=== PATIENT | female | born 1975 | race Caucasian/White ===

== ENCOUNTER 2017-02-07 09:09 | Emergency (ER) | payer BC ==
[~2017-02-07 09:09] MED LIST: BACTRIM DS TABL1 TA1 PO; DOXYCYCLINE HY100 M3 PO; FLAGYL PO; FLEXERIL PO; KETOPROFEN PO; TYLENOL #3 PO; TYLOX 5-500 CA1 EACH PO; VICODIN 5/500 T1 TAB PO; ZOVIRAX400 MG PO
[2017-02-07] MEDS ORDERED: WELLBUTRIN (09:16)
[2017-02-07] MEDS ORDERED: KLONOPIN (09:17)
[2017-02-07 09:37] LABS: URINE APPEARANCE SL CLOUDY; URINE BILIRUBIN NEG (NEG); URINE BLOOD 3+ (NEG); URINE COLOR YELLOW; URINE GLUCOSE NEG (NORM); URINE KETONE TRACE (NEG); URINE LEUKOCYTE ESTERASE 2+ (NEG); URINE NITRATE POS (NEG); URINE PROTEIN 3+ (NEG); URINE SOURCE CLEAN CATCH; URINE SPECIFIC GRAVITY 1.025 (1.003-1.035); URINE UROBILINOGEN 0.2 MG/DL (NORM)
[2017-02-07 09:39] LABS: MICRO INDICATED? YES
[2017-02-07 09:43] LABS: CULTURE INDICATED? YES; URINE BACTERIA 1+ (NEG); URINE SQUAMOUS EPITHELIAL CELL FEW /[HPF]; URINE WBC 200-300 /[HPF] (0-5)
== END 2017-02-07 10:35 | disposition home or self-care (01) ==
LOC: SED 09:09
PROVIDERS: Emergency Medicine
DX: N39.0 Urinary tract infection, site not specified (principal); F17.200 Nicotine dependence, unspecified, uncomplicated
CPT/HCPCS: 81003; 84703; 87086; 87088; 87186; 99283